=== PATIENT | female | born 1945 | race Two or more races ===

== ENCOUNTER 2016-11-29 14:24 | Emergency (ER) | payer OTHER ==
[~2016-11-29] VITALS: Ht 152.4 cm; Wt 76.7 kg
[2016-11-29 14:24] VITALS: BP 167/90
[~2016-11-29 14:24] MED LIST: ASPI-991 PO; GEMF600T3 PO; LEVO125T8 PO; LEVO250T2 PO; MIRT15TA7 PO; Nifedipine PO
[2016-11-29 15:20] LABS: BASOPHILS % (AUTO) 0.2 % (0.0-2.0); DIFF TOTAL % 100 %; EOSINOPHILS # (AUTO) 0.3 /CMM (0.0-0.7); EOSINOPHILS % (AUTO) 4.7 % (0.0-6.0); HEMATOCRIT 34 % (33-45); HEMOGLOBIN 11.4 g/dL (11.5-14.8); LYMPHOCYTES # (AUTO) 2.3 /CMM (0.8-4.8); LYMPHOCYTES % (AUTO) 33.9 % (20.0-44.0); MEAN CORPUSCULAR HEMOGLOBIN 27 PG (26.0-33.0); MEAN CORPUSCULAR HGB CONC 34 g/dl (31.0-36.0); MEAN CORPUSCULAR VOLUME 81 fL (82-100); MONOCYTES # (AUTO) 0.6 /CMM (0.1-1.30); MONOCYTES % (AUTO) 9.4 % (2.0-12.0); NEUTROPHILS # (AUTO) 3.4 /CMM (1.8-8.9); NEUTROPHILS % (AUTO) 51.8 % (43.0-81.0); PLATELET COUNT (AUTO) 495 /CMM (150-450); RED BLOOD CELL COUNT(AUTO) 4.17 MIL/uL (4.0-5.2); WHITE BLOOD COUNT (AUTO) 6.6 K/uL (4.3-11.0)
[2016-11-29 15:42] LABS: ALBUMIN 3.2 g/dL (3.4-5.0); BILIRUBIN,DIRECT 0.1 mg/dL (0.0-0.2); BILIRUBIN,TOTAL 0.3 mg/dL (0.2-1.0); CALCIUM, SERUM 8.7 mg/dL (8.5-10.1); INDIRECT BILIRUBIN 0.2 mg/dL (0.0-1.1); TOTAL PROTEIN, SERUM 7.8 g/dL (6.4-8.2)
[2016-11-29 15:49] LABS: POTASSIUM 2.2 mmol/L (3.5-5.1)
[2016-11-29] MEDS ORDERED: POTASSIUM CHLORIDE 20 MEQ TAB.PRT.SR PO ONE ×2 (16:00→16:06)
== END 2016-11-29 16:16 | disposition home or self-care (01) ==
LOC: ER 14:27
DX: E87.6 Hypokalemia (principal); I10 Essential (primary) hypertension; E11.9 Type 2 diabetes mellitus without complications; N28.9 Disorder of kidney and ureter, unspecified; Z79.82 Long term (current) use of aspirin
CPT/HCPCS: 36415; 71010-TC; 80048-TC; 80076-TC; 84484-TC; 85025-TC; A4606; Z7610

== ENCOUNTER 2017-07-01 11:33 | Emergency (ER) | payer OTHER ==
[~2017-07-01] VITALS: Ht 162.6 cm; Wt 76.7 kg
--- NOTE | 2017-07-01 11:37 | NUR ---
BB FAMILY MEMBER: HIGH BLOOD PRESSURE AT HOME x 2 DAYS
--- NOTE | 2017-07-01 11:43 | NUR ---
DR MACK AT BEDSIDE FOR EVAL
--- NOTE | 2017-07-01 11:59 | NUR ---
PT TAKEN TO CT SCAN
[2017-07-01] MEDS ORDERED: IV NS 0.9% 1,000 ML BAG IV ONE (12:00)
[2017-07-01] MEDS ORDERED: ONDANSETRON HCL/PF 4 MG/2 ML VIAL ONE (12:00)
[2017-07-01] MEDS ORDERED: ONDANSETRON HCL/PF 4 MG/2 ML VIAL IVP ONE (12:00)
--- NOTE | 2017-07-01 12:18 | NUR ---
RAC #20 IV ACCESS. BLOOD SAMPLE COLLECTED SENT TO LAB
[2017-07-01 12:23] LABS: BASOPHILS % (AUTO) 0.1 % (0.0-2.0); EOSINOPHILS # (AUTO) 0.3 /CMM (0.0-0.7); HEMATOCRIT 31 % (33-45); HEMOGLOBIN 10.6 g/dL (11.5-14.8); LYMPHOCYTES # (AUTO) 1.5 /CMM (0.8-4.8); LYMPHOCYTES % (AUTO) 22.1 % (20.0-44.0); MEAN CORPUSCULAR HEMOGLOBIN 29 PG (26.0-33.0); MEAN CORPUSCULAR HGB CONC 34 g/dl (31.0-36.0); MEAN CORPUSCULAR VOLUME 85 fL (82-100); MONOCYTES # (AUTO) 0.5 /CMM (0.1-1.30); MONOCYTES % (AUTO) 6.9 % (2.0-12.0); NEUTROPHILS # (AUTO) 4.3 /CMM (1.8-8.9); NEUTROPHILS % (AUTO) 66.9 % (43.0-81.0); PLATELET COUNT (AUTO) 449 /CMM (150-450); RDW COEFFICIENT OF VARIATION 12.9 (11.5-15.0); RED BLOOD CELL COUNT(AUTO) 3.66 MIL/uL (4.0-5.2); WHITE BLOOD COUNT (AUTO) 6.6 K/uL (4.3-11.0)
[2017-07-01 12:41] LABS: TROPONIN I < 0.017 ng/mL (0.00-0.056)
[2017-07-01 12:46] LABS: CALCIUM, SERUM 8.4 mg/dL (8.5-10.1); CARBON DIOXIDE 26 mmol/L (21-32); CHLORIDE 101 mmol/L (98-107); CREATININE 2.9 mg/dL (0.6-1.3); GLUCOSE 154 mg/dL (74-106); SODIUM SERUM 140 mmol/L (136-145); UREA NITROGEN, BLOOD 46 mg/dL (7-18)
[2017-07-01 12:52] LABS: ALANINE AMINOTRANSFERASE 16 U/L (12-78); ALBUMIN 3.3 g/dL (3.4-5.0); ALKALINE PHOSPHATASE 215 U/L (46-116); ASPARTATE AMINOTRANSFERASE 33 U/L (15-37); BILIRUBIN,DIRECT 0.1 mg/dL (0.0-0.2); BILIRUBIN,TOTAL 0.4 mg/dL (0.2-1.0); LIPASE 274 U/L (73-393); TOTAL PROTEIN, SERUM 7.8 g/dL (6.4-8.2)
--- NOTE | 2017-07-01 13:04 | NUR ---
URINE SAMPLE COLLECTED SENT TO LAB
[2017-07-01 13:15] LABS: APPEARANCE,URINE Clear (CLEAR); BILIRUBIN,URINE Negative (NEGATIVE); BLOOD, URINE Small Ery/uL (NEGATIVE); COLOR,URINE Yellow (YELLOW); KETONES,URINE Negative (NEGATIVE); LEUKOCYTE ESTERASE ,URINE Trace (NEGATIVE); NITRITE, URINE Negative (NEGATIVE); PH,URINE 5.5 (5.0-8.0); PROTEIN,URINE 100 mg/dl (NEGATIVE); UGLUCOSE 100 MG/DL mg/dL (NEGATIVE); UROBILINOGEN,URINE 0.2 EU/dL (0.2)
[2017-07-01 13:25] VITALS: BP 161/73
[2017-07-01] MEDS ORDERED: POTA20TA83 PO (13:58)
[2017-07-01] MEDS ORDERED: INSU3INS8 SQ (13:58)
[2017-07-01] MEDS ORDERED: NIFE60TA7 PO (13:58)
[2017-07-01] MEDS ORDERED: LABE100T PO (13:58)
--- NOTE | 2017-07-01 14:06 | NUR ---
GAVE REPORT TO KENA MCLAUGHLIN [facility] ROOM 306-2 DR JOHNSON ADMITTING . DX RENAL INSUFFICIENCY
[2017-07-01] MEDS ORDERED: POTASSIUM CHLORIDE 20 MEQ TAB.PRT.SR PO ONE ×2 (14:30→14:57)
[2017-07-01 14:31] LABS: BACTERIA,URINE Few /HPF (None Seen); RBC,URINE 0-2 /HPF (0-2); SQUAMOUS EPITHELIAL CELL,UR Few /HPF (None Seen)
--- NOTE | 2017-07-01 14:57 | NUR ---
DR JOHNSON SAW PT IN ER PT DISCHARGE HOME FROM ER MD WROTE ORDER ON PHYSICIAN ORDER SHEET. IV removed. Catheter intact and site benign. Pressure and 4x4 applied to site. No bleeding noted.
--- NOTE | 2017-07-01 14:58 | NUR ---
Patient discharged to home in stable condition. Written and verbal after care instructions given. Patient verbalizes understanding of instruction.
== END 2017-07-01 14:58 | disposition home or self-care (01) ==
LOC: ER 11:35 → MED 14:08 → UNDOADMIN 14:08 → ER 14:58 → UNDODISIN 15:13
DX: N28.9 Disorder of kidney and ureter, unspecified (principal); I10 Essential (primary) hypertension; E11.9 Type 2 diabetes mellitus without complications; Z79.82 Long term (current) use of aspirin; Z79.4 Long term (current) use of insulin
CPT/HCPCS: 36415; 70450; 71010; 80048; 80076; 81001; 82962; 83690; 84484; 85025; 87081; 93005; 96361; 96374; 99285; A4606; J2405; J7030; 81000-TC; Z7610

== ENCOUNTER 2022-05-19 17:07 | Emergency (ER) | payer OTHER ==
[~2022-05-19] VITALS: Ht 152.4 cm; Wt 76.2 kg
[~2022-05-19 17:07] MED LIST changes: +ASPI-1420 PO; -ASPI-991 PO; -GEMF600T3 PO; +GEMF600T90 PO; +INSU3INS8 SQ; +LABE100T5 PO; -LEVO250T2 PO; -MIRT15TA7 PO; +NIFE60TA73 PO; -Nifedipine PO; +POTA20TA83 PO
--- NOTE | 2022-05-19 17:25 | NUR ---
[id number] C/O ABD PAIN & VOMITING AFTER COMING HOME FROM DIALYSIS. BG >500. GIVEN 24 UNITS OF INSULIN BY FAMILY MEMBER PER EMS. GIVEN 3OO ML OF NS CASH MANAGEMENT ASSOCIATE. PT AAOX4, VSS. RR EVEN & UNLABORED. DENIES CP, SOB, DIZZINESS AT THIS TIME. PT SEEN & EVAL'D BY DR. DE LA CRUZ. WILL CONT TO MONITOR.
--- NOTE | 2022-05-19 17:41 | NUR ---
ACCU CHECH DONE 460 MG/LD [address] CREWS NOTEFY
--- NOTE | 2022-05-19 17:50 | NUR ---
BLOOD DROW BY LAB TACH
[2022-05-19 18:12] LABS: BASOPHILS % (AUTO) 0.3 % (0.0-2.0); HEMATOCRIT 34 % (33-45); LYMPHOCYTES # (AUTO) 0.5 K/uL (0.8-4.8); LYMPHOCYTES % (AUTO) 4.8 % (20.0-44.0); MEAN CORPUSCULAR HGB CONC 33 g/dl (31.0-36.0); MEAN CORPUSCULAR VOLUME 96 fL (82-100); MONOCYTES # (AUTO) 0.6 K/uL (0.1-1.30); MONOCYTES % (AUTO) 5.9 % (2.0-12.0); NEUTROPHILS # (AUTO) 8.5 K/uL (1.8-8.9); PLATELET COUNT (AUTO) 346 K/uL (150-450); RED BLOOD CELL COUNT(AUTO) 3.51 MIL/uL (4.0-5.2); WHITE BLOOD COUNT (AUTO) 9.5 K/uL (4.3-11.0)
[2022-05-19 18:28] LABS: ALANINE AMINOTRANSFERASE 16 U/L (12-78); ALBUMIN 3.8 g/dL (3.4-5.0); ALKALINE PHOSPHATASE 96 U/L (46-116); ASPARTATE AMINOTRANSFERASE 28 U/L (15-37); BILIRUBIN,TOTAL 0.4 mg/dL (0.2-1.0); CARBON DIOXIDE 24 mmol/L (21-32); CHLORIDE 93 mmol/L (98-107); CREATININE 4.6 mg/dL (0.6-1.3); LIPASE 156 U/L (73-393); POTASSIUM 5.8 mmol/L (3.5-5.1); SODIUM SERUM 135 mmol/L (136-145); TOTAL PROTEIN, SERUM 8.1 g/dL (6.4-8.2); UREA NITROGEN, BLOOD 40 mg/dL (7-18)
[2022-05-19 18:42] LABS: GLUCOSE 553 mg/dL (74-106)
--- NOTE | 2022-05-19 18:44 | NUR ---
LAB CALLED DAVID Rueda MD AWARE
[2022-05-19] MEDS ORDERED: INSULIN REGULAR, HUMAN 100 UNIT/ML 10 ML VIAL SQ ONE (19:00)
[2022-05-19] MEDS ORDERED: CEPH500T PO (19:13)
[2022-05-19] MEDS ORDERED: INSULIN REGULAR, HUMAN 100 UNIT/ML 10 ML VIAL ONE (19:18)
--- NOTE | 2022-05-19 19:38 | NUR ---
HAND OFF TO DAWIT MCLAUGHLIN
--- NOTE | 2022-05-19 19:50 | NUR ---
URINE SAMPLE COLLECTED AND SENT TO LAB
[2022-05-19 20:32] LABS: BILIRUBIN,URINE NEGATIVE (NEGATIVE); COLOR,URINE YELLOW (YELLOW); LEUKOCYTE ESTERASE ,URINE SMALL (NEGATIVE); NITRITE, URINE NEGATIVE (NEGATIVE); PROTEIN,URINE 100 mg/dl (NEGATIVE); UGLUCOSE >=1000 mg/dL (NEGATIVE); UROBILINOGEN,URINE 0.2 EU/dL (0.2)
--- NOTE | 2022-05-19 20:48 | NUR ---
Patient discharged to home in stable condition. Written and verbal after care instructions given. Patient verbalizes understanding of instruction.
[2022-05-19 20:49] VITALS: BP 140/60
[2022-05-19 22:10] LABS: BACTERIA,URINE 4+ /HPF (None Seen)
[2022-05-19 22:11] LABS: SQUAMOUS EPITHELIAL CELL,UR 0-2 /HPF (None Seen)
== END 2022-05-19 20:49 | disposition home or self-care (01) ==
LOC: ER 17:21
DX: E11.65 Type 2 diabetes mellitus with hyperglycemia (principal); I10 Essential (primary) hypertension; Z79.899 Other long term (current) drug therapy; Z79.82 Long term (current) use of aspirin; Z79.4 Long term (current) use of insulin; Z79.84 Long term (current) use of oral hypoglycemic drugs
CPT/HCPCS: 36415; 74176; 80048; 80076; 81001; 82962 ×3; 83690; 85025; 87077; 87086; 87186; 96372; 99285; J1815